=== PATIENT | female | born 1980 | race Caucasian/White ===

== ENCOUNTER → 2022-03-09 | Outpatient (CLI) | payer SELFPAY ==
[~2022-03-09] MED LIST: AMOCLA875 PO; CEPH500 PO; CLIN300 PO; ESTR2 PO; LEVSOD125 PO; LEVSOD150 PO; METERG.2 PO; OXYACE5T PO; SERT50 PO; TEMA15 PO
== END | disposition home or self-care (01) ==
LOC: LAB 09:29 → LAB SHORT 09:29
DX: J02.9 Acute pharyngitis, unspecified (principal)
CPT/HCPCS: 87081; 87147